=== PATIENT | male | born 1970 | race Caucasian/White ===

== ENCOUNTER 2018-07-09 20:06 | Emergency (ER) | payer OTHER ==
[2018-07-09 20:20] VITALS: BP 148/92
--- NOTE | 2018-07-09 20:41 | UC ---
Throat Pain/Nasal Geovany HPI - HPI Summary HPI Summary: 48-year-old male comes in to clinic today with a chief complaint of runny nose sore throat and feeling ill. Going on for 5 days. Rhinorrhea is slightly green. No chest congestion. He's been trying some lozenges that helped some. - History of Current Complaint Chief Complaint: UCGeneralIllness Stated Complaint: SORE THROAT Time Seen by Provider: 07/09/18 20:20 Pain Intensity: 9 - Allergies/Home Medications Allergies/Adverse Reactions: Allergies Allergy/AdvReac Type Severity Reaction Status Date / Time No Known Allergies Allergy Verified 07/09/18 20:20 Home Medications: Home Medications Clindamycin 1% TOPICAL(NF) [Cleocin-T 1% TOPICAL(NF)] 1 % EX DAILY WITH MEAL [History Confirmed 07/09/18] PMH/Surg Hx/FS Hx/Imm Hx Previously Healthy: Yes - Surgical History Surgical History: None - Family History Known Family History: Positive: Non-Contributory - Social History Alcohol Use: Rare Substance Use Type: None Smoking Status (MU): Never Smoked Tobacco Review of Systems All Other Systems Reviewed And Are Negative: Yes Constitutional: Positive: Negative Skin: Positive: Negative Eyes: Positive: Negative ENT: Positive: Sore Throat, Nasal Discharge, Sinus Congestion, Sinus Pain/ Tenderness Respiratory: Positive: Negative Cardiovascular: Positive: Negative Gastrointestinal: Positive: Negative Motor: Positive: Negative Neurovascular: Positive: Negative Musculoskeletal: Positive: Negative Neurological: Positive: Negative Psychological: Positive: Negative Is Patient Immunocompromised?: No Physical Exam Triage Information Reviewed: Yes Appearance: No Pain Distress, Well-Nourished, Ill-Appearing - MILD Vital Signs: Initial Vital Signs Temp 97.9 F 07/09/18 20:13 Pulse 97 07/09/18 20:13 Resp 18 07/09/18 20:13 BP 148/92 07/09/18 20:13 Pulse Ox 100 07/09/18 20:13 Vital Signs Reviewed: Yes Eye Exam: Normal Eyes: Positive: Conjunctiva Clear ENT: Positive: Pharyngeal erythema, Nasal congestion, Nasal drainage, TMs normal Neck exam: Normal Neck: Positive: Supple Respiratory: Positive: Lungs clear, Normal breath sounds, No respiratory distress Cardiovascular: Positive: RRR Musculoskeletal Exam: Normal Musculoskeletal: Positive: Strength Intact, ROM Intact Neurological Exam: Normal Neurological: Positive: Alert, Muscle Tone Normal Psychological Exam: Normal Psychological: Positive: Age Appropriate Behavior Skin Exam: Normal Throat Pain/Nasal Course/Dx - Course Course Of Treatment: Patient will continue symptomatic treatment. We discussed viral versus bacterial infections and the role of antibiotics. This time the patient prefers to be on an antibiotic. - Differential Dx/Diagnosis Provider Diagnosis: Pharyngitis Discharge - Sign-Out/Discharge Documenting (check all that apply): Patient Departure All imaging exams completed and their final reports reviewed: No Studies - Discharge Plan Condition: Stable Disposition: HOME Prescriptions: Amoxicillin PO (*) [Amoxicillin 875 MG (*)] 875 mg PO BID #20 tab Patient Education Materials: Pharyngitis (ED) Referrals: [facility] [place] [facility] [Outside] Additional Instructions: FOLLOW UP WITH YOUR DOCTOR IF NOT COMPLETELY IMPROVED. GET RECHECKED FOR ANY WORSENING OF YOUR CONDITION OR QUESTIONS OR CONCERNS. - Billing Disposition and Condition Condition: STABLE Disposition: Home
== END 2018-07-09 20:48 | disposition home or self-care (01) ==
LOC: UCEAST 20:06
DX: J02.9 Acute pharyngitis, unspecified (principal)
CPT/HCPCS: 87651; 99202; G0463

== ENCOUNTER 2018-09-29 08:22 | Emergency (ER) | payer OTHER ==
--- NOTE | 2018-09-29 09:10 | UC ---
Skin Complaint HPI - HPI Summary HPI Summary: 48 yo male presents with lesions on left lower extremity. He tells me that he has a history of multiple boils on his skin that usually resolve with cool/warm compresses, but over the last week or so has a red, warm, and swollen area on his LEFT knee and LEFT posterior thigh. The left knee seems to be improving, but the area on his left thigh is getting larger and more painful. He has been taking tylenol/ibuprofen for his discomfort with little relief. Denies fever, chills, or hx of MRSA. - History of Current Complaint Time Seen by Provider: 09/29/18 09:10 Stated Complaint: SKIN COMPLAINT Hx Obtained From: Patient Onset/Duration: Gradual Onset Onset Severity: Mild Current Severity: Moderate Pain Intensity: 6 Pain Scale Used: 0-10 Numeric - Allergy/Home Medications Allergies/Adverse Reactions: Allergies Allergy/AdvReac Type Severity Reaction Status Date / Time No Known Allergies Allergy Verified 07/09/18 20:20 PMH/Surg Hx/FS Hx/Imm Hx - Additional Past Medical History Additional PMH: Acne - Surgical History Surgical History: None - Family History Known Family History: Positive: Non-Contributory - Social History Occupation: Employed Full-time Lives: With Family Alcohol Use: Rare Substance Use Type: None Smoking Status (MU): Never Smoked Tobacco Review of Systems All Other Systems Reviewed And Are Negative: Yes Constitutional: Positive: Negative Skin: Positive: Other - Abscess left knee and left thigh Respiratory: Positive: Negative Cardiovascular: Positive: Negative Neurovascular: Positive: Negative Neurological: Positive: Negative Psychological: Positive: Negative Physical Exam - Summary Physical Exam Summary: GENERAL: NAD. WDWN. No pain distress. SKIN: LEFT KNEE: Lateral aspect with 3.0cm diameter of mild erythema, warmth, and edema with central scab and scant yellow drainage. Mild surrounding induration. LEFT thigh: posterior aspect with 10.0cm diameter area of erythema, edema, and central induration. Fluctuance appreciated. TTP. NECK: Supple. Nontender. No lymphadenopathy. CHEST: No accessory muscle use. Breathing comfortably and in no distress. CV: Pulses intact. Cap refill <2seconds MSK: FROM at left knee with little discomfort. NEURO: Alert. PSYCH: Age appropriate behavior. Triage Information Reviewed: Yes Vital Signs: Vital Signs: Temp Pulse Resp BP Pulse Ox 98.7 F 100 18 124/74 98 09/29/18 09:04 09/29/18 09:04 09/29/18 09:04 09/29/18 09:04 09/29/18 09:04 Vital Signs Reviewed: Yes Procedures - Incision and Drainage Left Lower Thigh Site: posterior thigh Anesthesia: Lidocaine Instrument(s): Scalpel - #11 Packing: Other - None Left Knee Site: Left medial knee Anesthesia: Lidocaine Instrument(s): Scalpel - #11 Packing: Other - None Course/Dx - Course Course Of Treatment: The procedure was explained to the pt and all questions were answered. A time out was performed, witnessed, and signed. First, I addressed the thigh abscess. The area was cleansed with an alcohol pad. 2mL of 2 % lidocaine without epi was administered and good anesthetization was achieved. A #11 blade was used to make a 7mm vertical incision at the central most part of the abscess. Copious yellow purulent and serosanguinous material was expressed. Hemostasis was achieved with direct pressure. Pt tolerated well. Second, I addressed the left knee skin abscess. The area was cleansed with an alcohol pad. 0.5mL of 2% lidocaine without epi was administered and good anesthetization was achieved. A #11 blade was used to make a 4mm vertical incision at the central most part of the abscess. Mild yellow purulent and serosanguinous material was expressed. Hemostasis was achieved with direct pressure. Pt tolerated well. The areas were bandaged with telfa. Will start him with clindamycin and have him change the dressings daily until well healed. - Diagnoses Provider Diagnosis: Abscess of left thigh, Abscess of left knee Discharge - Sign-Out/Discharge Documenting (check all that apply): Patient Departure All imaging exams completed and their final reports reviewed: No Studies - Discharge Plan Condition: Stable Disposition: HOME Prescriptions: Clindamycin Cap(NF) [Clindamycin Cap 300 mg Cap(NF)] 300 mg PO TID #21 cap Patient Education Materials: Abscess (ED) Referrals: No Primary Care Phys,NOPCP [Primary Care Provider] - Additional Instructions: If you develop a fever, shortness of breath, chest pain, new or worsening symptoms - please call your PCP or go to the ED. Change the dressing daily until well healed - Billing Disposition and Condition Condition: STABLE Disposition: Home - Attestation Statements Provider Attestation: Per institutional requirements, I have reviewed the chart, however, I was not consulted specifically or made aware of this patient by the midlevel provider. I did not personally evaluate, interact with , or disposition this patient.
[2018-09-29 09:14] VITALS: BP 124/74
[2018-09-29] MEDS ORDERED: Lidocaine 2% PF * 5 ML VIAL INJ ONE (09:21)
== END 2018-09-29 10:03 | disposition home or self-care (01) ==
LOC: UCEAST 08:22
DX: L02.416 Cutaneous abscess of left lower limb (principal)
CPT/HCPCS: 10060; 99212; 99213; G0463

== ENCOUNTER 2019-10-06 13:08 | Emergency (ER) | payer OTHER ==
[2019-10-06 13:49] VITALS: BP 128/79
[2019-10-06 14:15] LABS: Influenza A Molecular Negative (Negative); Influenza B Molecular Negative (Negative)
--- NOTE | 2019-10-06 15:05 | UC ---
Throat Pain/Nasal Geovany HPI - HPI Summary HPI Summary: SEVERAL DAYS OF URI SYMPTOMS AND SORE THROAT/PAIN WITH SWALLOWING. NO FEVER. DAUGHTER RECENTLY HAD STREP. - History of Current Complaint Chief Complaint: UCGeneralIllness Stated Complaint: SORE THROAT,SINUS PROBLEMS,CONGESTION Time Seen by Provider: 10/06/19 13:51 Hx Obtained From: Patient Onset/Duration: Gradual Onset, Lasting Days, Still Present Severity: Moderate Pain Intensity: 8 Pain Scale Used: 0-10 Numeric Cough: None Associated Signs & Symptoms: Positive: Hoarseness - Allergies/Home Medications Allergies/Adverse Reactions: Allergies Allergy/AdvReac Type Severity Reaction Status Date / Time No Known Allergies Allergy Verified 10/06/19 13:49 Home Medications: Home Medications Clindamycin 1% TOPICAL(NF) [Cleocin-T 1% TOPICAL(NF)] 1 % EX DAILY WITH MEAL [History Confirmed 10/06/19] Amoxicillin PO (*) [Amoxicillin 500 MG CAP*] 500 mg PO Q12H #20 cap 10/06/19 [Rx ] PMH/Surg Hx/FS Hx/Imm Hx Other Cancer History: MELANOMA - Surgical History Surgical History: Yes Surgery Procedure, Year, and Place: melanoma - Family History Known Family History: Positive: Non-Contributory - Social History Alcohol Use: Rare Substance Use Type: None Smoking Status (MU): Never Smoked Tobacco - Immunization History Most Recent Tetanus Shot: within five years Review of Systems All Other Systems Reviewed And Are Negative: Yes Constitutional: Positive: Chills, Fatigue ENT: Positive: Sore Throat, Nasal Discharge Respiratory: Positive: Negative Cardiovascular: Positive: Negative Gastrointestinal: Positive: Negative Physical Exam Triage Information Reviewed: Yes Appearance: Well-Appearing, No Pain Distress, Well-Nourished Vital Signs: Initial Vital Signs Temp 97.6 F 10/06/19 13:47 Pulse 110 10/06/19 13:47 Resp 20 10/06/19 13:47 BP 128/79 10/06/19 13:47 Pulse Ox 100 10/06/19 13:47 Laboratory Tests 10/06/19 10/06/19 14:01 14:03 Influenza A (Rapid) Negative Influenza B (Rapid) Negative Group A Strep Rapid Positive H Vital Signs Reviewed: Yes Eyes: Positive: Conjunctiva Clear ENT: Positive: Hearing grossly normal, Pharyngeal erythema, TMs normal, Tonsillar swelling, Other - HOT [place] VOICE Neck: Positive: Supple, Nontender, No Lymphadenopathy Respiratory Exam: Normal Cardiovascular: Positive: Tachycardia Abdomen Description: Positive: Soft Musculoskeletal: Positive: No Edema Neurological: Positive: Alert Psychological: Positive: Age Appropriate Behavior Skin: Negative: Rashes Throat Pain/Nasal Course/Dx - Course Course Of Treatment: FLU NEGATIVE. STREP POSITIVE. AMOXICILLIN TWICE DAILY FOR 10 DAYS. OTC MEDS NEEDED. FOLLOW-UP IF SYMPTOMS DO NOT IMPROVE EXPECTED. - Differential Dx/Diagnosis Provider Diagnosis: Strep throat Discharge ED - Sign-Out/Discharge Documenting (check all that apply): Patient Departure All imaging exams completed and their final reports reviewed: No Studies - Discharge Plan Condition: Stable Disposition: HOME Prescriptions: Amoxicillin PO (*) [Amoxicillin 500 MG CAP*] 500 mg PO Q12H #20 cap Patient Education Materials: Strep Throat (ED) Referrals: Corey Maria MD [Primary Care Provider] - If Needed Additional Instructions: STREP POSITIVE. TAKE ANTIBIOTICS FOR THE FULL 10 DAYS. OTC CHLORASEPTIC OR CEPACOL LOZENGES AND/OR IBUPROFEN FOR SORE THROAT NEEDED ONCE SYMPTOMS RESOLVED - NEW TOOTHBRUSH DO NOT SHARE FOOD, DRINK, UTENSILS FLU NEGATIVE. USE OTC AFRIN FOR NASAL CONGESTION IF NEEDED. 2 SPRAYS IN EACH NOSTRIL TWICE DAILY NEEDED. DO NOT USE FOR MORE THAN 3-4 DAYS IN A ROW TO PREVENT DEVELOPING REBOUND CONGESTION. IF YOU ONLY USE IT ONCE DAILY YOU CAN EXTEND TO ABOUT 5 DAYS. - Billing Disposition and Condition Condition: STABLE Disposition: Home
== END 2019-10-06 15:22 | disposition home or self-care (01) ==
LOC: UCEAST 13:08
DX: J02.0 Streptococcal pharyngitis (principal); R00.0 Tachycardia, unspecified
CPT/HCPCS: 87651; 99212; G0463